=== PATIENT | female | born 1990 | race Caucasian/White ===

== ENCOUNTER 2018-07-14 15:54 | Emergency (ER) | payer OTHER ==
[2018-07-14 16:10] VITALS: BMI 22.6
[2018-07-14 16:12] VITALS: PULSE 110; RESP 20
[2018-07-14] MEDS ORDERED: Sodium Chloride 0.9% 1,000 ML IV ONE ×3 (16:26→19:05)
[2018-07-14] MEDS ORDERED: Sodium Chloride 0.9% 1,000 ML ONE ×2 (16:38→19:19)
[2018-07-14] MEDS ORDERED: Albuterol-Ipratrop 3 mg / 0.5 (3 ml) UD ONE (16:44)
[2018-07-14] MEDS: Albuterol-Ipratrop 3 mg / 0.5 (3 ml) UD IH SCH (16:48)
[2018-07-14 17:07] LABS: BASO % 0.7 % (0.0-2.0); EOS % 0.1 % (0.0-4.0); HEMOGLOBIN 8.5 g/dL (11.0-16.0); LYMPH # 0.4 K/uL (1.0-4.3); LYMPH % 5.8 % (20.0-40.0); MEAN CELL VOLUME 67.7 fL (81.0-99.0); MEAN CORPUSCULAR HEMOGLOBIN 21.7 pg (27.0-31.0); MEAN CORPUSCULAR HGB CONC 32.1 g/dL (33.0-37.0); MEAN PLATELET VOLUME 7.3 fL (7.2-11.7); MONO # 0.9 K/uL (0.0-0.8); MONO % 12.8 % (0.0-10.0); NEUT # 5.5 K/uL (1.8-7.0); NEUT % 80.6 % (50.0-75.0); NRBC % 0.1 % (0.0-2.0); PLATELET COUNT 429 K/uL (130-400); RED CELL DISTRIBUTION WIDTH 16.5 % (11.5-14.5); WHITE BLOOD COUNT 6.9 K/uL (4.8-10.8)
[2018-07-14 17:20] LABS: ALB/GLOB RATIO 1.2 (1.0-2.1); ALBUMIN 4.1 g/dL (3.5-5.0); ALT/SGPT 18 U/L (9-52); AST/SGOT 23 U/L (14-36); BLOOD UREA NITROGEN 3 mg/dL (7-17); CALCIUM 8.4 mg/dl (8.6-10.4); GFR NON-AFRICAN AMERICAN > 60
--- NOTE | 2018-07-14 17:32 | C.PDOC ---
History Of Present Illness 28 year old female presents to ED with complaint of body aches, cough, and fever for the past 2 days. Patient's last menstrual period was on 03/25/2018. , P:2, A:0. Patient's PALEONTOLOGICAL HELPER is Dr. Soto. Patient denies rhinorrhea, headach e, and weakness. Time Seen by Provider: 07/14/18 16:15 Chief Complaint (Nursing): Flu-like Symptoms History Per: Patient History/Exam Limitations: no limitations Onset/Duration Of Symptoms: Days (2) Current Symptoms Are (Timing): Still Present Location Of Pain: Diffuse Myalgias Associated Symptoms: Fever, Cough, Myalgias. denies: Chills, Sore Throat, Nasal Congestion Past Medical History Reviewed: Historical Data, Nursing Documentation, Vital Signs Vital Signs: Last Vital Signs Temp 101.3 F H 07/14/18 16:09 Pulse 110 H 07/14/18 16:09 Resp 20 07/14/18 16:09 BP 98/60 L 07/14/18 16:09 Pulse Ox 100 07/14/18 16:09 - Medical History PMH: No Chronic Diseases Surgical History: No Surg Hx Family History: States: Unknown Family Hx - Social History Hx Alcohol Use: No Hx Substance Use: No - Immunization History Hx Tetanus Toxoid Vaccination: No Hx Influenza Vaccination: No Hx Pneumococcal Vaccination: No Review Of Systems Constitutional: Positive for: Fever, Malaise. Negative for: Chills, Weakness ENT: Negative for: Throat Pain Cardiovascular: Negative for: Chest Pain, Palpitations Respiratory: Positive for: Cough. Negative for: Shortness of Breath Neurological: Negative for: Weakness, Numbness, Headache, Dizziness Physical Exam - Physical Exam Appears: Well, Non-toxic, No Acute Distress, Other (actively coughing) Skin: Normal Color, Warm, Dry Head: Atraumatic, Normacephalic Nose: No Discharge Throat: Normal, No Erythema, No Exudate Neck: Normal ROM, Supple Chest: Symmetrical, No Deformity Cardiovascular: Rhythm Regular Respiratory: No Accessory Muscle Use, No Rales, No Rhonchi, No Wheezing Gastrointestinal/Abdominal: Soft, No Tenderness Extremity: Capillary Refill (< 2 seconds) Neurological/Psych: Oriented x3, Normal Speech, Normal Cognition ED Course And Treatment - Laboratory Results Result Diagrams: 07/14/18 16:26 07/14/18 16:52 Lab Results: Total Bilirubin 0.2 mg/dL (0.2-1.3) 07/14/18 16:52 AST 23 U/L (14-36) 07/14/18 16:52 ALT 18 U/L (9-52) 07/14/18 16:52 Alkaline Phosphatase 105 U/L (38-126) 07/14/18 16:52 Total Protein 7.5 g/dL (6.3-8.3) 07/14/18 16:52 Albumin 4.1 g/dL (3.5-5.0) 07/14/18 16:52 Globulin 3.5 gm/dL (2.2-3.9) 07/14/18 16:52 Albumin/Globulin Ratio 1.2 (1.0-2.1) 07/14/18 16:52 Lab Interpretation: Abnormal O2 Sat by Pulse Oximetry: 100 (RA) - Radiology CXR: Interpreted by Id CXR Interpretation: Yes: No Acute Disease Progress Note: Treated with IVF NSS, duonebs x 2 and tylenol 650 mg PO. Case discussed with Dr Jane who agrees with discharge on antibiotics and follow up as outpatient. On re-evaluation feeling better, lungs clear Reassessment Condition: Improved - Physician Consult Information Physician Contacted: Rj Jane Outcome Of Conversation: follow up as outpatient Medical Decision Making Medical Decision Making: Impression; 28 year old with fever, cough, and malaise Plan: Labs ordered with flu a/b and UA Patient given Albuterol INH, Tylenol PO, and IV fluids. Patient is Flu a/b negative. Called Dr. Soto regarding patient. Will call back. Disposition Discussed With : Rj Jane Doctor Will See Patient In The: Office Counseled Patient/Family Regarding: Studies Performed, Diagnosis, Need For Followup - Disposition Referrals: Rj Jane MD [Staff Provider] - Disposition: HOME/ ROUTINE Disposition Time: 19:00 Condition: STABLE Additional Instructions: Follow up with Dr Jane Return to ED if any increase symptoms Prescriptions: Albuterol HFA [Ventolin HFA 90 mcg/actuation (8 g)] 2 puff IH [id number] PRN #2 puff PRN Reason: Cough Azithromycin [Zithromax] 250 mg PO DAILY #4 tab Instructions: Acute Bronchitis Forms: [facility] (Stateless) - POA Present On Arrival: None - Clinical Impression Clinical Impression: Influenza-like illness, Bronchitis - 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 (Annie Mendez) - Scribe Statement The provider has reviewed the documentation as recorded by the Scribe (Annie Mendez) All medical record entries made by the Scribe were at my direction and pers onally dictated by me. I have reviewed the chart and agree that the record accurately reflects my personal performance of the history, physical exam, medical decision making, and the department course for this patient. I have also personally directed, reviewed, and agree with the discharge instructions and disposition.
[2018-07-14 18:00] LABS: BANDS 15 % (0-2); LYMPHOCYTE 8 % (20-40); MONOCYTE 4 % (0-10); NEUTROPHIL 73 % (50-75); TOTAL CELLS COUNTED 100
[2018-07-14 18:01] LABS: MICROCYTOSIS SLIGHT; OVALOCYTES SLIGHT; PLATELET ESTIMATE NORMAL (NORMAL)
[2018-07-14] MEDS ORDERED: cefTRIAXone IV 1 gm in Dextros 50 ML IV ONE (18:19)
--- NOTE | 2018-07-14 19:07 | RAD ---
HISTORY: fever COMPARISON: None available TECHNIQUE: Chest PA and lateral FINDINGS: LUNGS: No focal consolidation. Please note that chest x-ray has limited sensitivity for the detection of pulmonary masses. PLEURA: No significant pleural effusion identified. No definite pneumothorax . CARDIOVASCULAR: Heart size appears within normal limits. No atherosclerotic calcification present. OSSEOUS STRUCTURES: No acute osseous abnormality identified. VISUALIZED UPPER ABDOMEN: Unremarkable. OTHER FINDINGS: None. IMPRESSION: No focal consolidation.
[2018-07-14 19:57] LABS: SQUAMOUS EPITHIAL 7 /hpf (0-5); URINE BACTERIA OCC (<OCC); URINE BILIRUBIN NEGATIVE (NEGATIVE); URINE BLOOD 3+ (NEGATIVE); URINE CLARITY Hazy (Clear); URINE COLOR Straw (YELLOW); URINE GLUCOSE (UA) NORMAL (Normal); URINE LEUKOCYTE ESTERASE NEG Leu/uL (Negative); URINE PROTEIN NEGATIVE (NEGATIVE); URINE UROBILINOGEN NORMAL mg/dL (0.2-1.0)
[2018-07-14 20:56] VITALS: BP 106/61; TEMP 99.3; O2SAT 99
== END 2018-07-14 20:58 | disposition home or self-care (01) ==
LOC: C.ER 15:54
DX: J11.1 Influenza due to unidentified influenza virus with other respiratory manifestations (principal); J40 Bronchitis, not specified as acute or chronic
CPT/HCPCS: 71046; 80053; 81001; 85025; 87804; 94640; 96361; 96374; 99284; J0696; J7030

== ENCOUNTER 2018-10-09 16:05 | Emergency (ER) | payer OTHER ==
[2018-10-09 17:05] VITALS: BMI 23.9
[2018-10-09] MEDS ORDERED: Lactated Ringer's 1,000 ML IV ONE (17:15)
--- NOTE | 2018-10-09 18:24 | OBHP ---
Datetime: 10/09/2018 17:06 IP Adm Impression: , intrauterine IP Admit Plan: Observation/Evaluation IP Admit Plan Other: Discharge to ED Admit Comment, IP Provider: 28yo at 28.2wks EDC: 12/30/18 presents with complaint of bilatera l leg pain that started three days ago and has become progressively worse. Pt states that the pain is in the hips and radiates to the thighs anteriorly and posteriorly. Pt states she did have this pain in her previous pregnancies. Denies contractions, leakage of fluid and vaginal bleeding. Reports good movements. PNC: Dr. Jane POb: C/S x 2 ([place]) PGYN: denies abnormal pap smear; STIs; fibroids; ovarian cysts PMHx: denies PSHX: C/S x 2 ALL: NKDA Meds: Tylenol; PNV ADVIL-Pt counseled NSAIDS are not safe in FHX: denies SHX: denies x 3 TOCO: Quiet EFM: HERNAN SVE: deferred A/P: IUP at 28.2weeks- LE pain IVF hydration/Tylenol given Obstetrically cleared- discharge to ER for hip/leg pain Plan of care discussed with Dr. Jane F/u in private office with next scheduled appt (Annotations: Data stored by CPN on behalf of user) Extremities - PN: Abnormal Abdomen - PN: Normal Neurologic - PN: Normal General - PN: Normal FHR - Baseline A Provider: 150 Contraction Comments Provider: quiet Comments, ACOG Physical Exam: Ext: b/l 1+ edema generalized pain to palpation no calf tenderness neg ative maeve LAWSON AdmitDate IP: 28.2 Vital Signs Provider: Reviewed IP Chief Complaint: Other NICHD Variability Prov Fetus A: Moderate 6-25bpm NICHD Accel Fetus A IP Provider: [id number] FHR Category Provider Fetus A: Category I Dilatation, Provider: 0 Effacement, Provider: 0 Station, Provider: -3
[2018-10-09 19:07] VITALS: BP 114/76; PULSE 81; RESP 18; TEMP 98.1; O2SAT 100
--- NOTE | 2018-10-09 19:37 | C.PDOC ---
Time Seen by Provider: 10/09/18 19:26 Chief Complaint (Nursing): Lower Extremity Problem/Injury Past Medical History Vital Signs: Last Vital Signs Temp 98.1 F 10/09/18 19:02 Pulse 81 10/09/18 19:02 Resp 18 10/09/18 19:02 BP 114/76 10/09/18 19:02 Pulse Ox 100 10/09/18 19:02 Primary Care Provider: FAMILY PROVIDER,NO Family History: States: Unknown Family Hx - Social History Hx Alcohol Use: No Hx Substance Use: No - Immunization History Hx Tetanus Toxoid Vaccination: No Hx Influenza Vaccination: No Hx Pneumococcal Vaccination: No ED Course And Treatment O2 Sat by Pulse Oximetry: 100 Disposition - Disposition
--- NOTE | 2018-10-09 19:44 | C.PDOC ---
History Of Present Illness 28 year old female presents to ED with complaint of bilateral thigh pain since yesterday morning. Patient states that the pain is worse with movement and is unable to walk ulices to the pain. Patient is s/p clearance form L&D EGA 28 weeks ago, per L&D triage. Patient states similar symptoms during prior pregnancies. She also complains of pain that radiates to the front fo the thighs. Patient last took Tylenol at 1715 given by L&D. Patient denies trauma, weakness, or numbness. BL THIGH PAIN SINCE YEST MORNING. WORSE W MOVEMENT, STATES UNABLE TO WALK DUE TO PAIN. S/P CLEARANCE FROM L&D EGA 28 WKS, PER L&D TRIAGE PS SIM SX DURING PRIOR PREGNANCIES. NO TRAUMA. B/L HIPS, RADIATION FRONT THIGH. 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 NEG Time Seen by Provider: 10/09/18 19:26 Chief Complaint (Nursing): Lower Extremity Problem/Injury History Per: Patient History/Exam Limitations: no limitations Onset/Duration Of Symptoms: Days (1) Current Symptoms Are (Timing): Still Present Past Medical History Reviewed: Historical Data, Nursing Documentation, Vital Signs Vital Signs: Last Vital Signs Temp 98.1 F 10/09/18 19:02 Pulse 81 10/09/18 19:02 Resp 18 10/09/18 19:02 BP 114/76 10/09/18 19:02 Pulse Ox 100 10/09/18 19:37 Primary Care Provider: FAMILY PROVIDER,NO - Medical History PMH: No Chronic Diseases Surgical History: No Surg Hx Family History: States: Unknown Family Hx - Social History Hx Alcohol Use: No Hx Substance Use: No - Immunization History Hx Tetanus Toxoid Vaccination: No Hx Influenza Vaccination: No Hx Pneumococcal Vaccination: No Review Of Systems Except As Marked, All Systems Reviewed And Found Negative. Musculoskeletal: Positive for: Leg Pain (bilateral thigh pain that radiates to the front thighs) Physical Exam - Physical Exam Appears: Non-toxic, Other (mild distress) Skin: Normal Color, Warm, Dry Head: Atraumatic, Normacephalic Eye(s): bilateral: Normal Inspection Oral Mucosa: Moist Neck: Normal ROM, Supple Chest: Symmetrical, No Deformity Cardiovascular: Rhythm Regular, No Murmur Respiratory: No Accessory Muscle Use, No Rales, No Rhonchi, No Wheezing, Other (NARD) Gastrointestinal/Abdominal: Soft, No Tenderness, No Distention, No Guarding, No Rebound Extremity: Normal ROM, No Tenderness, Capillary Refill (<2 seconds), No Swelling (assymetry) Extremity: Bilateral: Normal Color And Temperature Pulses: Left Dorsalis Pedis: Normal, Right Dorsalis Pedis: Normal Neurological/Psych: Oriented x3, Normal Speech, Normal Cognition, Normal Motor, Normal Sensation Gait: Steady ED Course And Treatment O2 Sat by Pulse Oximetry: 100 (in RA) Pulse Ox Interpretation: Normal Progress Note: BMP, CBC, and UA ordered for patient. Patient given Lidoderm. Progress - Re-Evaluation Re-evaluation Note: 10/09/18 19:55 DR HERNANDEZ UNAVAIL FOR PT DISCUSSION PENDING CALLBACK DR JANE 10/09/18 20:07 D/W DR JANE AWARE OF ER FINDINGS: STATES PT CAN TAKE ADVIL DIRECTED, WILL FU IN OFFICE. PT ADVISED, AGREES W DC PLAN - Data Reviewed Data Reviewed: Old records Disposition Counseled Patient/Family Regarding: Diagnosis, Need For Followup - Disposition Referrals: Rj Jane MD [Staff Provider] - Disposition: HOME/ ROUTINE Disposition Time: 20:09 Condition: GOOD Additional Instructions: PER DR JANE, TAKE ADVIL DIRECTED. FOLLOW UP IN OFFICE. APPLY PATCH TO AFFECTED AREA. MAX 3 PATCHES AT A TIME. REMOVE PATCH 12 HOURS AFTER INITIAL APPLICATION. ALTERNATE 12 HOURS ON, 12 HOURS OFF. Prescriptions: Lidocaine 5% [Lidoderm] 2 patch TOP ONCE PRN #20 patch MDD 3 PATCHES PRN Reason: Pain, Moderate (4-7) Instructions: Radiculopathy (DC) Forms: [facility] (Amharic) - Clinical Impression Clinical Impression: Lumbar radiculopathy - Scribe Statement The provider has reviewed the documentation as recorded by the Scribe (Annie Mendez) All medical record entries made by the Scribe were at my direction and personally dictated by me. I have reviewed the chart and agree that the record accurately reflects my personal performance of the history, physical exam, medical decision making, and the department course for this patient. I have also personally directed, reviewed, and agree with the discharge instructions and disposition.
[2018-10-09] MEDS ORDERED: Lidocaine 5% Patch TD STA (19:45)
[2018-10-09] MEDS ORDERED: Lidocaine 5% Patch TD ONE (20:09)
== END 2018-10-09 20:52 | disposition home or self-care (01) ==
LOC: C.ER 16:05 → C.EROB 16:05 → C.ER 20:52
DX: O26.893 Other specified pregnancy related conditions, third trimester (principal); M54.16 Radiculopathy, lumbar region; Z3A.28 28 weeks gestation of pregnancy
CPT/HCPCS: 99283; J7120